=== PATIENT | female | born 1990 | race African-American/Black ===

== ENCOUNTER 2022-11-20 05:45 | Inpatient (IN) | payer OTHER ==
[2022-11-20] MEDS ORDERED: ELECTROLYTE-148 SOLN 500 ML IV SCH ×2 (06:20→06:50)
[2022-11-20] MEDS ORDERED: CITRIC ACID/SODIUM CITRATE 30 ML UNIT-DOSE CUP PO ONE ×2 (06:20→09:40)
[2022-11-20 06:31] VITALS: BMI 38.2
[2022-11-20] MEDS: ELECTROLYTE-148 SOLN 1,000 ML IV SCH (07:30)
[2022-11-20] MEDS ORDERED: FENTANYL CITRATE/PF 50 MCG/ML VIAL ONE (07:53)
[2022-11-20] MEDS ORDERED: morphine SULFATE (PF) 1 MG/2 ML SYRINGE ONE (07:53)
[2022-11-20] MEDS ORDERED: DEXAMETHASONE SOD PHOSPHATE 4 MG/1 ML VIAL ONE (08:32)
[2022-11-20] MEDS ORDERED: ONDANSETRON 4 MG/2 ML VIAL ONE (08:32)
[2022-11-20] MEDS ORDERED: ceFAZolin SODIUM 1 GM VIAL ONE (08:32)
[2022-11-20] MEDS ORDERED: OXYTOCIN 10 UNITS/ML VIAL ONE ×2 (08:32→08:46)
[2022-11-20] MEDS ORDERED: ELECTROLYTE-148 SOLN 500 ML IV ONE (09:40)
[2022-11-20] MEDS ORDERED: IBUPROFEN 800 MG/8 ML IJ IVPB PRN (09:41)
[2022-11-20] MEDS ORDERED: METHYLERGONOVINE MALEATE 0.2 MG/1 ML AMP IM PRN (09:41)
[2022-11-20] MEDS ORDERED: ACETAMINOPHEN 325 MG TABLET (FP) PO PRN (09:41)
[2022-11-20] MEDS ORDERED: LABETALOL HCL 200 MG TABLET (FP) PO SCH (10:00)
[2022-11-20] MEDS ORDERED: LABETALOL HCL 100 MG TABLET (FP) ONE (10:21)
[2022-11-20] MEDS: LABETALOL HCL 200 MG TABLET (FP) PO SCH ×2 (10:30→21:50)
[2022-11-20] MEDS: PRENATAL VITAMINS W/ FOLIC ACID TABLET (FP) PO SCH (10:57)
[2022-11-20] MEDS ORDERED: OXYTOCIN 20 UNITS in 0.9% NS 20 UNIT/1,000 ML INFUS.BAG IV ONE (11:07)
[2022-11-20] MEDS: OXYTOCIN 20 UNITS in 0.9% NS 20 UNIT/1,000 ML INFUS.BAG IV SCH ×2 (11:10→20:23)
[2022-11-20] MEDS: FERROUS SO4 325 MG TABLET (FP) PO SCH ×2 (11:29→22:25)
[2022-11-20] MEDS ORDERED: oxyCODONE HCL 5 MG TABLET PO PRN ×2 (21:41)
[2022-11-20] MEDS: SIMETHICONE 80 MG TAB.CHEW (FP) PO PRN (22:25)
[2022-11-21] MEDS: IBUPROFEN 600 MG TABLET (FP) PO PRN ×4 (04:41→23:20)
[2022-11-21 09:06] LABS: BASO % 0.2 % (0-2.0); EOS % 0.5 % (0-4.5); HEMATOCRIT 25.8 % (32.4-45.2); HEMOGLOBIN 8.8 GM/dL (10.7-15.3); LYMPH % 16.9 % (8-40); MCH 31.2 pg (25.7-33.7); MCHC 34.3 g/dl (32.0-36.0); MEAN PLT VOLUME 9.1 fl (7.5-11.1); MONO % 7.9 % (3.8-10.2); NEUT % 74.5 % (42.8-82.8); PLATELET COUNT 181 10^3/uL (134-434); RBC 2.83 M/mm3 (3.60-5.2); RDW 14.3 % (11.6-15.6)
[2022-11-21] MEDS: LABETALOL HCL 200 MG TABLET (FP) PO SCH ×2 (09:25→22:09)
[2022-11-21] MEDS: PRENATAL VITAMINS W/ FOLIC ACID TABLET (FP) PO SCH (09:26)
[2022-11-21] MEDS: FERROUS SO4 325 MG TABLET (FP) PO SCH ×2 (09:27→22:09)
[2022-11-21] MEDS: SIMETHICONE 80 MG TAB.CHEW (FP) PO PRN ×2 (09:28→18:59)
[2022-11-21] MEDS ORDERED: BISACODYL 10 MG SUPP.RECT RC PRN (09:41)
[2022-11-21] MEDS: OXYTOCIN 20 UNITS in 0.9% NS 20 UNIT/1,000 ML INFUS.BAG IV SCH (21:28)
[2022-11-21] MEDS: ELECTROLYTE-148 SOLN 1,000 ML IV SCH (21:29)
[2022-11-21] MEDS: SENNOSIDES/DOCUSATE COMBO (SENNA PLUS) TABLET (UD) PO PRN (22:14)
[2022-11-22] MEDS: SIMETHICONE 80 MG TAB.CHEW (FP) PO PRN ×3 (08:32→21:33)
[2022-11-22] MEDS: IBUPROFEN 600 MG TABLET (FP) PO PRN ×3 (08:32→21:35)
[2022-11-22] MEDS: FERROUS SO4 325 MG TABLET (FP) PO SCH ×2 (09:28→21:34)
[2022-11-22] MEDS: PRENATAL VITAMINS W/ FOLIC ACID TABLET (FP) PO SCH (09:28)
[2022-11-22] MEDS: LABETALOL HCL 200 MG TABLET (FP) PO SCH ×2 (09:28→21:34)
[2022-11-22 10:44] VITALS: RESP 18
[2022-11-22] MEDS: SENNOSIDES/DOCUSATE COMBO (SENNA PLUS) TABLET (UD) PO PRN (21:34)
[2022-11-23] MEDS: IBUPROFEN 600 MG TABLET (FP) PO PRN (09:24)
[2022-11-23] MEDS: SIMETHICONE 80 MG TAB.CHEW (FP) PO PRN (09:24)
[2022-11-23] MEDS: FERROUS SO4 325 MG TABLET (FP) PO SCH (09:24)
[2022-11-23] MEDS: PRENATAL VITAMINS W/ FOLIC ACID TABLET (FP) PO SCH (09:24)
[2022-11-23] MEDS: LABETALOL HCL 200 MG TABLET (FP) PO SCH (09:25)
[2022-11-23 09:28] VITALS: BP 129/76; PULSE 83; TEMP 98.5
== END 2022-11-23 12:30 | disposition home or self-care (01) | DRG 787 ==
LOC: JLDR 05:45 → J3W 11:15
PROVIDERS: ADMIT Obstetrics & Gynecology; ATTEND Obstetrics & Gynecology
PROC: 10D00Z1 Extraction of Products of Conception, Low, Open Approach (ICD-10-PCS; principal; 2022-11-20)
DX: O32.8XX0 Maternal care for other malpresentation of fetus, not applicable or unspecified (principal); O10.92 Unspecified pre-existing hypertension complicating childbirth; O34.10 Maternal care for benign tumor of corpus uteri, unspecified trimester; Z3A.39 39 weeks gestation of pregnancy; Z37.0 Single live birth
CPT/HCPCS: 36415; 85025; 88307-TC; 94010